=== PATIENT | female | born 1995 | race Caucasian/White ===

== ENCOUNTER 2017-04-29 13:07 | Emergency (ER) | payer BC ==
[2017-04-29 14:06] VITALS: BP 120/79
--- NOTE | 2017-04-29 14:43 | UC ---
Lower Extremity/Ankle HPI - HPI Summary HPI Summary: has last almost 20 pounds in 2 months as leg and abdomen cramping no fever no nausea, vomiting or diarrhea - History of Current Complaint Chief Complaint: UCGeneralIllness Stated Complaint: LEFT LEG PAIN/CRAMPING Time Seen by Provider: 04/29/17 14:34 Hx Obtained From: Patient Hx Last Menstrual Period: 04/19/17 ?: No Onset/Duration: Gradual Onset, Lasting Weeks - 8, Worse Since - past 3 days Severity Initially: Mild Severity Currently: Moderate Aggravating Factor(s): Standing, Ambulation Alleviating Factor(s): Nothing Able to Bear Weight: Yes - Allergies/Home Medications Allergies/Adverse Reactions: Allergies Allergy/AdvReac Type Severity Reaction Status Date / Time No Known Allergies Allergy Verified 04/29/17 13:53 Home Medications: Home Medications NK [No Home Medications Reported] 04/29/17 [History Confirmed 04/29/17] PMH/Surg Hx/FS Hx/Imm Hx Previously Healthy: Yes - Surgical History Surgical History: None - Family History Known Family History: Positive: Other - breast cancer - Social History Occupation: Employed Full-time Lives: With Family Alcohol Use: Weekly Alcohol Amount: weekends Substance Use Type: None Smoking Status (MU): Never Smoked Tobacco - Immunization History Most Recent Influenza Vaccination: no Most Recent Tetanus Shot: less then 10 yrs Review of Systems Constitutional: Fatigue Skin: Negative Eyes: Negative ENT: Negative Respiratory: Negative Cardiovascular: Negative Gastrointestinal: Abdominal Pain Genitourinary: Negative Motor: Negative Neurovascular: Negative Musculoskeletal: Myalgia Neurological: Negative Psychological: Negative Is Patient Immunocompromised?: No All Other Systems Reviewed And Are Negative: Yes Physical Exam Triage Information Reviewed: Yes Appearance: No Pain Distress, Ill-Appearing - mild, Thin Vital Signs: Initial Vital Signs Temp 98.7 F 04/29/17 13:54 Pulse 66 04/29/17 13:54 Resp 16 04/29/17 13:54 BP 120/79 04/29/17 13:54 Pulse Ox 100 04/29/17 13:54 Vital Signs Reviewed: Yes Eye Exam: Normal Eyes: Positive: Conjunctiva Clear ENT Exam: Normal ENT: Positive: Normal ENT inspection, Hearing grossly normal, Pharynx normal, TMs normal, Uvula midline. Negative: Nasal congestion, Tonsillar swelling, Tonsillar exudate, Trismus, Muffled voice, Hoarse voice, Dental tenderness, Sinus tenderness Dental Exam: Normal Neck exam: Normal Neck: Positive: Supple, Nontender, No Lymphadenopathy Respiratory Exam: Normal Respiratory: Positive: Chest non-tender, Lungs clear, Normal breath sounds, No respiratory distress, No accessory muscle use, Respiratory distress Cardiovascular Exam: Normal Cardiovascular: Positive: RRR, No Murmur, Pulses Normal, Brisk Capillary Refill Abdominal Exam: Other Abdomen Description: Positive: No Organomegaly, Soft, Other: - diffuse discomfort. Negative: CVA Tenderness (R), CVA Tenderness (L), Distended Bowel Sounds: Positive: Present Musculoskeletal Exam: Normal Musculoskeletal: Positive: Strength Intact, ROM Intact, No Edema Neurological Exam: Normal Neurological: Positive: Alert, Muscle Tone Normal Psychological Exam: Normal Skin Exam: Normal Lower Extremity Course/Dx - Course Course Of Treatment: d/c and send to [facility] by private [facility] for further evaluation and care - Differential Dx/Diagnosis Provider Diagnoses: weight loss - Physician Notifications Discussed Patient Care With: Jailyn Garcia Time Discussed With Above Provider: 14:45 Instructed by Provider To: Other Discharge - Discharge Plan Condition: Stable Disposition: OTHER Discharge [facility] Patient Education Materials: Leg Pain (ED) Referrals: [facility] [place] [place]Outside] - 1 Week Additional Instructions: We are discharging you today to go to [facility] Emergency Department for further care and work up
== END 2017-04-29 14:58 ==
LOC: UCCORT 13:07
DX: R63.4 Abnormal weight loss (principal)
CPT/HCPCS: 99212; G0463

== ENCOUNTER 2017-06-13 12:41 | Emergency (ER) | payer BC ==
[2017-06-13 14:49] VITALS: BP 110/74
--- NOTE | 2017-06-13 14:59 | UC ---
Throat Pain/Nasal Nba HPI - HPI Summary HPI Summary: Patient started having flu like symptoms 4 days ago, she has fever, chills body aches, nausea and vomiting. - History of Current Complaint Chief Complaint: UCGeneralIllness Stated Complaint: FEVER,COUGH,VOMITING Time Seen by Provider: 06/13/17 14:58 Hx Obtained From: Patient Hx Last Menstrual Period: 05/16/17 ?: No Onset/Duration: Sudden Onset, Lasting Days Severity: Moderate Pain Intensity: 0 Cough: Productive Associated Signs & Symptoms: Positive: Dysphagia, Fever, Vomiting - Allergies/Home Medications Allergies/Adverse Reactions: Allergies Allergy/AdvReac Type Severity Reaction Status Date / Time No Known Allergies Allergy Verified 06/13/17 14:49 PMH/Surg Hx/FS Hx/Imm Hx Previously Healthy: Yes - Surgical History Surgical History: None - Family History Known Family History: Positive: Other - breast cancer - Social History Alcohol Use: Weekly Alcohol Amount: weekends Substance Use Type: None Smoking Status (MU): Never Smoked Tobacco - Immunization History Most Recent Influenza Vaccination: no Most Recent Tetanus Shot: less then 10 yrs Review of Systems Constitutional: Fever, Chills, Fatigue Skin: Negative Eyes: Negative ENT: Sore Throat Respiratory: Cough Cardiovascular: Negative Gastrointestinal: Vomiting, Nausea Genitourinary: Negative Motor: Negative Neurovascular: Negative Musculoskeletal: Myalgia Neurological: Headache Psychological: Negative Is Patient Immunocompromised?: No All Other Systems Reviewed And Are Negative: Yes Physical Exam Triage Information Reviewed: Yes Appearance: Well-Appearing, Well-Nourished, Pain Distress Vital Signs: Initial Vital Signs Temp 99.6 F 06/13/17 14:44 Pulse 104 06/13/17 14:44 Resp 20 06/13/17 14:44 BP 110/74 06/13/17 14:44 Pulse Ox 98 06/13/17 14:44 Vital Signs Reviewed: Yes Eye Exam: Normal ENT: Positive: Pharyngeal erythema, TM red Dental Exam: Normal Neck exam: Normal Neck: Positive: Supple, Nontender, No Lymphadenopathy Respiratory Exam: Normal Respiratory: Positive: Chest non-tender, No respiratory distress, No accessory muscle use, Wheezing, Inspiration Cardiovascular Exam: Normal Cardiovascular: Positive: No Murmur, Pulses Normal, Tachycardia Abdominal Exam: Normal Abdomen Description: Positive: Nontender, No Organomegaly, Soft Bowel Sounds: Positive: Present Musculoskeletal Exam: Normal Musculoskeletal: Positive: Strength Intact, ROM Intact, No Edema Neurological Exam: Normal Neurological: Positive: Alert Psychological Exam: Normal Skin Exam: Normal Throat Pain/Nasal Course/Dx - Course Course Of Treatment: hx obtained, exam performed,meds reviewed, treated for nausea and cough, educated on treatement for flu. - Differential Dx/Diagnosis Differential Diagnosis/HQI/PQRI: Influenza, Otitis Media, Pharyngitis, Sinusitis , URI Provider Diagnoses: Influenza A. nausea Discharge - Discharge Plan Condition: Stable Disposition: HOME Prescriptions: Albuterol HFA INHALER* [Ventolin HFA Inhaler*] 2 puff INH Q4H PRN #1 mdi PRN Reason: Cough Ondansetron ODT TAB* [Zofran 4 MG Odt TAB*] 4 mg PO Q8H PRN #15 tab.odt PRN Reason: Nausea Patient Education Materials: Influenza (ED) Forms: *School Release Referrals: No Primary Care Phys,NOPCP [Primary Care Provider] - Additional Instructions: 1. take the medication as prescribed. 2. INcrease fluid intake and get plenty of rest 3. Self isolate to keep from spreading the germs. 4. If you develop asny severe nausea, dehydration or respiratory symtpoms please report to ER.
[2017-06-13] MEDS ORDERED: Ondansetron ODT TAB* 4 MG PO ONE (15:08)
== END 2017-06-13 15:26 | disposition home or self-care (01) ==
LOC: UCCORT 12:41
DX: J11.1 Influenza due to unidentified influenza virus with other respiratory manifestations (principal); R11.2 Nausea with vomiting, unspecified
CPT/HCPCS: 87502; 99212; A9270-GY; G0463

== ENCOUNTER 2017-08-02 18:34 | Emergency (ER) | payer BC ==
[2017-08-02 19:26] VITALS: BP 111/70
[2017-08-02] MEDS ORDERED: Ibuprofen TAB* 400 MG PO ONE (21:10)
--- NOTE | 2017-08-03 17:20 | UC ---
Throat Pain/Nasal Nba HPI - HPI Summary HPI Summary: 22 y/o female presents to the urgent care c/o sore throat and pounding RENEE for the past 2 days. Pt also states B/L ear pressure. Pain w/ swallowing is 6/10. She took Tylenol PO yesterday to alleviate symptoms. Pt denies body aches, chills, SOB, chest pain, abdominal pain, N/V/D. LMP:07/12/2017 and is concerned w / since she had unprotected sexual intercourse. - History of Current Complaint Chief Complaint: UCGeneralIllness Stated Complaint: FLU SYMPTOMS Time Seen by Provider: 08/02/17 20:48 Hx Obtained From: Patient Hx Last Menstrual Period: 07/12/17 ?: No Onset/Duration: Gradual Onset, Lasting Days - 2 days, Still Present, Worse Since - today Severity: Moderate Pain Intensity: 8 Pain Scale Used: 0-10 Numeric Cough: None Associated Signs & Symptoms: Positive: Dysphagia, Fever - Epiglottits Risk Factors Epiglottis Risk Factors: Negative - Allergies/Home Medications Allergies/Adverse Reactions: Allergies Allergy/AdvReac Type Severity Reaction Status Date / Time No Known Allergies Allergy Verified 08/02/17 19:26 PMH/Surg Hx/FS Hx/Imm Hx Previously Healthy: Yes - Pt deneis PMHX - Surgical History Surgical History: None - Family History Known Family History: Positive: Diabetes Family History: breast cancer - Social History Occupation: Employed Full-time Lives: With Family Alcohol Use: Weekly Alcohol Amount: weekends Substance Use Type: None Smoking Status (MU): Never Smoked Tobacco - Immunization History Most Recent Influenza Vaccination: no Most Recent Tetanus Shot: less then 10 yrs Review of Systems Constitutional: Fever Skin: Negative Eyes: Negative ENT: Sore Throat Respiratory: Negative Cardiovascular: Negative Gastrointestinal: Negative Genitourinary: Negative Motor: Negative Neurovascular: Negative Musculoskeletal: Negative Neurological: Headache Psychological: Negative Is Patient Immunocompromised?: No All Other Systems Reviewed And Are Negative: Yes Physical Exam - Summary Physical Exam Summary: VITAL SIGNS: Reviewed. GENERAL: Patient is a well developed and nourished female who is sitting comfortable in the examining table. Patient is not in any acute respiratory distress. HEAD AND FACE: No signs of trauma. No ecchymosis, hematomas or skull depressions. No sinus tenderness. EYES: PERRLA, EOMI x 2, No injected conjunctiva, no nystagmus. No photophobia. EARS: Hearing grossly intact. Ear canals and tympanic membranes are within normal limits. MOUTH: Positive pharynx with erythema, no exudates, palatal petechiae. B/L tonsillar enlargement with no exudate. Uvula in midline. NECK: Supple, trachea is midline, Positive anterior cervical lymphadenopathy, no JVD, no carotid bruit, no c-spine tenderness, neck with full ROM. No meningeal signs, no Kernig's or brudzinskis signs. CHEST: Symmetric, no tenderness at palpation LUNGS: Clear to auscultation bilaterally. No wheezing or crackles. CVS: Regular rate and rhythm, S1 and S2 present, no murmurs or gallops appreciated. ABDOMEN: Soft, non-tender. No signs of distention. No rebound no guarding, and no masses palpated. Bowel sounds are normal. EXTREMITIES: FROM in all major joints, no edema, no cyanosis or clubbing. NEURO: Alert and oriented x 3. No acute neurological deficits. Speech is normal and follows commands. SKIN: Dry and warm Triage Information Reviewed: Yes Vital Signs: Initial Vital Signs Temp 100.8 F 08/02/17 19:21 Pulse 91 08/02/17 19:21 Resp 16 08/02/17 19:21 BP 111/70 08/02/17 19:21 Pulse Ox 100 08/02/17 19:21 Throat Pain/Nasal Course/Dx - Course Course Of Treatment: 22 y/o female presents to the urgent care c/o sore throat and pounding RENEE for the past 2 days. Pt also states B/L ear pressure. Pain w/ swallowing is 6/10. She took Tylenol PO yesterday to alleviate symptoms. Pt denies fever, body aches, chills, SOB, chest pain, abdominal pain, N/V/D. LMP: and is concerned w/ since she had unprotected sexual intercourse.Hx obtained. Pt febrile w/ pharyngitis on examination. Rapid strep: negative. test: negative. pt given Ibuprofen PO at the clinic to alleviate symptoms. Rx same medication. Advised on hand washing to avoid spreading. Pt advised to rest, eat well and avoid strenuous exercise. If symptoms do not improve or worsen advised to return to the urgent care or f/u with her PCP for further evaluation and treatment. Pt understood and agreed - Differential Dx/Diagnosis Differential Diagnosis/HQI/PQRI: Influenza, Laryngitis, Mononucleosis, Pharyngitis, Sinusitis, Tonsillitis, URI Provider Diagnoses: 1- Viral pharyngitis. 2-Screening for Discharge - Sign-Out/Discharge Documenting (check all that apply): Discharge - Discharge Plan Condition: Stable Disposition: HOME Prescriptions: Ibuprofen TAB* [Motrin TAB* 800 MG] 800 mg PO Q6H PRN #20 tab PRN Reason: Sore Throat Patient Education Materials: Pharyngitis (ED) Forms: *Work Release Referrals: [facility] [place] [facility] [Outside] - If Needed Additional Instructions: 1-Please take ibuprofen PO q6-8hrs prn as instructed after meals to alleviate pain and swelling. Increase fluid intake, eat well, rest and avoid strenuous exercise 2-If symptoms do not improve or worsen please return to the urgent care or f/u with your PCP for further evaluation and treatment. - Billing Disposition and Condition Condition: STABLE Disposition: HOME
== END 2017-08-02 21:16 | disposition home or self-care (01) ==
LOC: UCCORT 18:34
DX: J02.8 Acute pharyngitis due to other specified organisms (principal); Z32.02 Encounter for pregnancy test, result negative
CPT/HCPCS: 84702; 87651; 99212; A9270-GY; G0463

== ENCOUNTER 2017-10-07 11:20 | Emergency (ER) | payer BC ==
[2017-10-07 11:35] VITALS: BP 105/73
--- NOTE | 2017-10-07 12:16 | UC ---
Dental HPI - HPI Summary HPI Summary: PATIENT PRESENTS WITH 1 WEEK OF WORSENING RIGHT UPPER DENTAL PAIN THAT IS NOW RADIATING TO HER LOWER TEETH. PRIOR TO ONSET OF SYMPTOMS SHE STATES SHE HAD A FILLING THAT FELL OUT. TOOTH IS SENSITIVE TO HOT AND COLD. THERE IS NO DRAINAGE FROM THE TOOTH. SHE DENIES ANY FEVER. HAS A DENTIST APPOINTMENT IN 4 DAYS. IBUPROFEN IS SOMEWHAT EFFECTIVE BUT ONLY VERY TRANSIENTLY. SHE IS HAVING A HARD TIME SLEEPING DUE TO DISCOMFORT. - History of Current Complaint Chief Complaint: UCDentalProblem Stated Complaint: DENTAL COMPLAINT Time Seen by Provider: 10/07/17 11:48 Hx Obtained From: Patient Hx Last Menstrual Period: 09/10/17 Onset/Duration: Sudden Onset, Lasting Weeks, Still Present Severity: Moderate Pain Intensity: 9 Pain Scale Used: 0-10 Numeric Aggravating Factor(s): Heat, Cold, Chewing Alleviating Factor(s): OTC Meds - IBUPROFEN Related History: Previous Dental Care on Same Tooth - Allergies/Home Medications Allergies/Adverse Reactions: Allergies Allergy/AdvReac Type Severity Reaction Status Date / Time No Known Allergies Allergy Verified 10/07/17 11:29 Home Medications: Home Medications Ibuprofen TAB* [Motrin TAB* 800 MG] 800 mg PO Q6H PRN 10/07/17 [History Confirmed 10/07/17] PMH/Surg Hx/FS Hx/Imm Hx Previously Healthy: Yes - Surgical History Surgical History: None - Family History Known Family History: Positive: Diabetes, Other - breast cancer Family History: breast cancer - Social History Alcohol Use: Weekly Alcohol Amount: weekends Substance Use Type: None Smoking Status (MU): Never Smoked Tobacco - Immunization History Most Recent Influenza Vaccination: no Most Recent Tetanus Shot: less then 10 yrs Review of Systems Constitutional: Negative ENT: Dental Pain Respiratory: Negative Cardiovascular: Negative Gastrointestinal: Negative All Other Systems Reviewed And Are Negative: Yes Physical Exam Triage Information Reviewed: Yes Appearance: Well-Appearing, No Pain Distress, Well-Nourished Vital Signs: Initial Vital Signs Temp 97.8 F 10/07/17 11:30 Pulse 73 10/07/17 11:30 Resp 16 10/07/17 11:30 BP 105/73 10/07/17 11:30 Pulse Ox 99 10/07/17 11:30 Vital Signs Reviewed: Yes Eyes: Positive: Conjunctiva Clear ENT: Positive: Hearing grossly normal, Pharynx normal Dental: Positive: Percussion Tenderness @ - RIGHT UPPER 2ND MOLAR WITH OBVIOUS DEFECT. NO DISCHARGE OR SWELLING. Negative: Abscess @ Neck: Positive: Supple, Nontender, No Lymphadenopathy Respiratory Exam: Normal Cardiovascular Exam: Normal Abdomen Description: Positive: Soft Musculoskeletal: Positive: No Edema Neurological: Positive: Alert Psychological: Positive: Age Appropriate Behavior Skin: Negative: rashes Dental Complaint Course/Dx - Differential Dx/Diagnosis Provider Diagnoses: DENTAL PAIN Discharge - Sign-Out/Discharge Documenting (check all that apply): Discharge/Admit/Transfer - Discharge Plan Condition: Stable Disposition: HOME Prescriptions: Acetaminop/Codeine 30 MG TAB* [Tylenol/Codeine 30 MG TAB*] 1 - 2 tab PO Q6H PRN #15 tab MDD 6 PRN Reason: Pain Chlorhexidine MW 0.12% 473ML* [Peridex Mouth Wash 0.12%*] 15 ml SWISH SPIT BID # 1 bottle Patient Education Materials: Toothache (ED) Referrals: No Primary Care Phys,NOPCP [Primary Care Provider] - Additional Instructions: KEEP YOUR APPOINTMENT WITH YOUR DENTIST NEXT WEEK. IN THE MEANTIME USE ANTISEPTIC MOUTH RINSE TWICE DAILY AND RINSE YOUR MOUTH WITH WATER EVERY TIME AFTER EATING OR DRINKING. [id number] IBUPROFEN NEEDED FOR PAIN. USE TYLENOL 3 FOR BREAKTHROUGH PAIN. NO SIGN OF DENTAL ABSCESS ON EXAM TODAY. - Billing Disposition and Condition Condition: STABLE Disposition: HOME
== END 2017-10-07 12:18 | disposition home or self-care (01) ==
LOC: UCCORT 11:20
DX: K08.89 Other specified disorders of teeth and supporting structures (principal)
CPT/HCPCS: 99212; G0463

== ENCOUNTER 2018-02-22 11:07 | Emergency (ER) | payer BC ==
[2018-02-22 12:48] VITALS: BP 114/67
--- NOTE | 2018-02-22 13:21 | UC ---
Complaint Female HPI - HPI Summary HPI Summary: 22 year old woman comes in today with a chief complaint of dysuria and urinary frequency. This started 4 days ago. The symptoms have been worsening over time. There is no back pain or flank pain no fever. Her stomach was upset a little yesterday but is no abdominal pain today. Patient denies any abnormal vaginal discharge or any concern of STI. Pain is worse with urination. - History Of Current Complaint Chief Complaint: UCGU Stated Complaint: URINARY Time Seen by Provider: 02/22/18 12:45 Hx Last Menstrual Period: 10-14 days ago Pain Intensity: 0 - Allergies/Home Medications Allergies/Adverse Reactions: Allergies Allergy/AdvReac Type Severity Reaction Status Date / Time No Known Allergies Allergy Verified 02/22/18 12:44 PMH/Surg Hx/FS Hx/Imm Hx Previously Healthy: Yes - Surgical History Surgical History: None - Family History Known Family History: Positive: Diabetes, Other - breast cancer Family History: breast cancer - Social History Alcohol Use: Weekly Alcohol Amount: weekends Substance Use Type: None Smoking Status (MU): Never Smoked Tobacco - Immunization History Most Recent Influenza Vaccination: no Most Recent Tetanus Shot: less then 10 yrs Review of Systems Constitutional: Negative Skin: Negative Eyes: Negative ENT: Negative Respiratory: Negative Cardiovascular: Negative Gastrointestinal: Negative Genitourinary: Dysuria, Frequency, Urgency Motor: Negative Neurovascular: Negative Musculoskeletal: Negative Neurological: Negative Psychological: Negative Is Patient Immunocompromised?: No All Other Systems Reviewed And Are Negative: Yes Physical Exam Triage Information Reviewed: Yes Appearance: Well-Appearing, No Pain Distress, Well-Nourished Vital Signs: Initial Vital Signs Temp 97.3 F 02/22/18 12:43 Pulse 66 02/22/18 12:43 Resp 16 02/22/18 12:43 BP 114/67 02/22/18 12:43 Pulse Ox 100 02/22/18 12:43 Eye Exam: Normal Eyes: Positive: Conjunctiva Clear Neck exam: Normal Neck: Positive: Supple Respiratory Exam: Normal Respiratory: Positive: Lungs clear, Normal breath sounds, No respiratory distress Cardiovascular: Positive: RRR Abdominal Exam: Normal Abdomen Description: Positive: Nontender, Soft. Negative: CVA Tenderness (R), CVA Tenderness (L) Musculoskeletal Exam: Normal Musculoskeletal: Positive: Strength Intact, ROM Intact, No Edema Neurological Exam: Normal Neurological: Positive: Alert Psychological Exam: Normal Psychological: Positive: Normal Response To Family, Age Appropriate Behavior Skin Exam: Normal Complaint Female Dx - Differential Dx/Diagnosis Provider Diagnoses: UTI Discharge - Sign-Out/Discharge Documenting (check all that apply): Patient Departure All imaging exams completed and their final reports reviewed: No Studies - Discharge Plan Condition: Stable Disposition: HOME Prescriptions: Cephalexin CAP* [Keflex CAP*] 500 mg PO TID #21 cap Phenazopyridine 200 mg (NF) [Pyridium 200 MG tab *] 200 mg PO TID PRN #10 tab PRN Reason: Pain Patient Education Materials: Urinary Tract Infection in Women (ED) Referrals: [facility] [place] [facility] [Outside] Additional Instructions: FOLLOW UP WITH YOUR DOCTOR IF NOT COMPLETELY IMPROVED. GET RECHECKED FOR ANY WORSENING OF YOUR CONDITION OR QUESTIONS OR CONCERNS. - Billing Disposition and Condition Condition: STABLE Disposition: Home
--- NOTE | 2018-02-24 09:15 | UC ---
- Progress Note Progress Note: + proteus on keflex await sensitivity no change ljj 02/24/18 Discharge - Sign-Out/Discharge Documenting (check all that apply): Post-Discharge Follow Up All imaging exams completed and their final reports reviewed: No Studies - Discharge Plan Condition: Stable Disposition: HOME Prescriptions: Cephalexin CAP* [Keflex CAP*] 500 mg PO TID #21 cap Phenazopyridine 200 mg (NF) [Pyridium 200 MG tab *] 200 mg PO TID PRN #10 tab PRN Reason: Pain Patient Education Materials: Urinary Tract Infection in Women (ED) Referrals: [facility] [place] [facility] [Outside] Additional Instructions: FOLLOW UP WITH YOUR DOCTOR IF NOT COMPLETELY IMPROVED. GET RECHECKED FOR ANY WORSENING OF YOUR CONDITION OR QUESTIONS OR CONCERNS. - Billing Disposition and Condition Condition: STABLE Disposition: Home
== END 2018-02-22 13:26 | disposition home or self-care (01) ==
LOC: UCCORT 11:07
DX: N39.0 Urinary tract infection, site not specified (principal); B96.4 Proteus (mirabilis) (morganii) as the cause of diseases classified elsewhere
CPT/HCPCS: 81003; 84702; 87077; 87086; 87186; 99212; G0463